=== PATIENT | female | born 1970 | race Caucasian/White ===

== ENCOUNTER → 2019-03-31 10:57 | Outpatient (CLI) | payer MEDICARE, OTHER, SELFPAY ==
--- NOTE | 2019-03-31 11:02 | XR_ITS ---
PROCEDURE: XR ANKLE LT MIN 3V CLINICAL INDICATION: ankle pain COMPARISON: No exams were available for comparison FINDINGS: No fracture, dislocation, lytic change, or blastic change evident. No significant degenerative change the IMPRESSION: Negative left ankle Dictated by: Alvaro Lynch MD 03/31/2019 11:16 Electronically signed by Alvaro Lynch MD in [place] 03/31/2019 11:17
[2019-03-31 19:50] LABS: Amphetamine/Metha Screen,Urine Negative ng/mL (<1000); Barbiturates Screen,Urine Negative ng/mL (<200); Benzodiazepines Screen,Urine Negative ng/mL (<200); Cannabinoid Screen,Urine Negative ng/mL (<50); Cocaine Screen,Urine Negative ng/mL (<300); Methadone Screen,Urine Negative ng/mL (<300); Opiate Screen,Urine Negative ng/mL (<300); Phencyclidine Screen,Urine Negative ng/mL (<25)
== END ==
PROVIDERS: Nurse Practitioner Family; PCP Emergency Medicine; Visit Provider Emergency Medicine
DX: M25.572 Pain in left ankle and joints of left foot (principal); Z79.899 Other long term (current) drug therapy
CPT/HCPCS: 73610; 80305

== ENCOUNTER → 2019-03-31 17:11 | Outpatient (CLI) | payer MEDICARE, OTHER, SELFPAY | PROVIDERS: Visit Provider Nurse Practitioner Family | DX: Z79.899 Other long term (current) drug therapy (principal) | CPT/HCPCS: 80305 ==

== ENCOUNTER → 2019-04-20 09:27 | Outpatient (CLI) | payer MEDICARE, OTHER, SELFPAY ==
--- NOTE | 2019-04-20 09:59 | XR_ITS ---
PROCEDURE: XR FOOT LT MIN 3V CLINICAL INDICATION: L Foot pain COMPARISON: No exams were available for comparison FINDINGS: No fracture or dislocation. No lytic or blastic change. There is normal mineralization. The joint spaces are well-preserved. No significant degenerative/arthritic changes. No erosive changes evident. Other findings:None. IMPRESSION: No acute findings. Dictated by: Alvaro Lynch MD 04/20/2019 16:19 Electronically signed by Alvaro Lynch MD in [place] 04/20/2019 16:19
[2019-04-20 10:26] LABS: Basophils # 0.1 K/mm3 (0-0.2); Basophils % 0.7 % (0.1-2.0); Eosinophils # 0.3 K/mm3 (0.0-0.4); Eosinophils % 2.6 % (0.1-12.0); Hematocrit 44.7 % (37.0-47.0); Lymphocytes # 2.2 K/mm3 (0.7-4.5); Mean Corpuscular HGB Conc 31.3 g/dL (31.8-35.4); Mean Corpuscular Hemoglobin 33.6 pg (27.0-31.2); Mean Corpuscular Volume 107.4 fl (81-99); Mean Platelet Volume 8.1 fl (7.4-10.4); Monocytes # 0.4 K/mm3 (0.1-1.0); Monocytes % 3.9 % (1.7-9.3); Neutrophils # 6.7 K/mm3 (1.8-7.8); Neutrophils % 69.8 % (37.0-80.0); Platelet Count 360 K/mm3 (142-424); Red Blood Count 4.17 M/mm3 (4.20-5.40); Red Cell Distribution Width 12.2 % (11.5-17.5); White Blood Count 9.5 K/mm3 (4.8-10.8)
[2019-04-20 11:26] LABS: Alanine Aminotransferase 25 U/L (12-78); Albumin Level 3.6 gm/dL (3.4-5.0); Alkaline Phosphatase 134 U/L (46-116); Anion Gap 15.3 mEq/L (5-15); Aspartate Amino Transferase 17 U/L (15-37); Bilirubin,Total 0.2 mg/dL (0.2-1.0); Blood Urea Nitrogen 20 mg/dL (7-18); Calcium 8.7 mg/dL (8.5-10.1); Carbon Dioxide 26 mmol/L (21.0-32.0); Chloride 103 mmol/L (98-107); Chol/HDL Ratio 7.4 (1-3.5); Cholesterol 311 mg/dL (140-200); Creatinine,Serum 0.84 mg/dL (0.55-1.02); Estimated Glomerular Filt Rate 73 ml/min (>60); GFR (African American) 88 ML/MIN (>60); Globulin 3.6 gm/dl (1.3-3.2); Glucose 116 mg/dL (74-106); HDL Cholesterol 42 mg/dL (29-89); LDL Cholesterol 249 mg/dL (0-130); Potassium 4.3 mmoL/L (3.5-5.1); Sodium 140 mmol/L (136-145); T4 (Thyroxine) 13.8 ug/dl (4.7-13.3); Thyroid Stimulating Hormone 4.59 uIU/ml (0.358-3.740); Total Protein,Serum 7.2 gm/dL (6.4-8.2); Triglycerides 99 mg/dL (30-200); VLDL Cholesterol 20 mg/dL (0-40)
[2019-04-21 14:13] LABS: Vitamin D 25 Hydroxy 7.9 ng/mL (30.0-100.0)
== END ==
PROVIDERS: PCP Nurse Practitioner Family; Visit Provider Nurse Practitioner Family
DX: M79.672 Pain in left foot (principal); R56.9 Unspecified convulsions; R60.0 Localized edema; E78.5 Hyperlipidemia, unspecified; E55.9 Vitamin D deficiency, unspecified
CPT/HCPCS: 36415; 73630; 80053; 80061; 82652; 84436; 84443; 85025

== ENCOUNTER → 2019-11-17 13:24 | Outpatient (CLI) | payer MEDICARE, OTHER, SELFPAY | PROVIDERS: Visit Provider Nurse Practitioner Family | DX: R10.9 Unspecified abdominal pain (principal) | CPT/HCPCS: 87086; 87088; 87186 ==

== ENCOUNTER → 2020-01-13 14:09 | Outpatient (CLI) | payer MEDICARE, OTHER, SELFPAY ==
--- NOTE | 2020-01-13 14:21 | XR_ITS ---
PROCEDURE: XR TIBIA FIBULA LT 2V CLINICAL INDICATION: s/p fall Posttraumatic pain COMPARISON: No exams were available for comparison FINDINGS: No fracture or dislocation. No lytic or blastic change. There is normal mineralization. The joint spaces are well-preserved. No significant degenerative/arthritic changes. No erosive changes evident. Other findings:None. IMPRESSION: No acute findings. Dictated by: Alvaro Lynch MD 01/13/2020 17:29 Alvaro Lynch MD in [place] 01/13/2020 17:29
== END ==
PROVIDERS: PCP Nurse Practitioner Family; Visit Provider Nurse Practitioner Family
DX: M79.604 Pain in right leg (principal); M79.605 Pain in left leg
CPT/HCPCS: 73590

== ENCOUNTER 2020-02-16 13:40 | Emergency (ER) | payer MEDICARE, OTHER, SELFPAY ==
--- NOTE | 2020-02-16 13:47 | HMH.EDGENADL ---
ED Disposition Clinical Impression: Atypical pneumonia Disposition: Home, Self-Care Condition on Discharge: Good Instructions: Atypical Pneumonia Additional Instructions: Take medications as prescribed. Follow-up with your PCP in the next few days. If you have any new, changing, worsening, or concerning symptoms, come back to the emergency department. Prescriptions: predniSONE [Prednisone 10mg Tab Dose-Pack] 10 mg PO UD DOSE PK 5 Days #1 pack Transmission Status: Pending to [id number] Azithromycin [Zithromax 500mg Tab Tri-[place]] 500 mg PO DAILY #3 tab Transmission Status: [facility] Referrals: Rosemary Gonzalez APRN [Primary Care Provider] - Time of Disposition: 14:03 - Critical Care Critical Care Time: No Attestation: On , the high probability of a clinically significant, sudden or life threatening deterioration of the following system(s) required my full and direct attention, intervention and personal management. The time I documented below is in addition to time spent performing reported procedures but includes the following listed in this critical care notation. Medical Decision Making - Medical Records Medical records reviewed: Yes: I reviewed the patient's medical records. MR Comment: 49-year-old female presents emergency department with productive cough. She arrives the ED hemodynamically stable, with reassuring vital signs, and looks well on exam. She has oxygen saturation in the upper 90s on room air and is not in any respiratory distress, she is not tachypneic. She does not feel short of breath and has no chest pain. Given her overall exam and presentation, and history do not feel that she needs a chest x-ray at this time. I doubt a consolidation pneumonia. Her cough has been productive of yellow-green sputum. Will treat with steroids and azithromycin and have her follow-up with her PCP. She was given strict return precautions and discharge instructions including follow-up for further evaluation and treatment and verbalizes an understanding and agreement to the plan. Safe to discharge. - Jhon Inquiry Pt receiving controlled substance: No General Adult HPI - General Stated complaint: merrill burgos Time Seen by Provider: 02/16/20 13:47 - History of Present Illness HPI narrative: 49-year-old female with a history of seizure disorder and bipolar disorder presents the emergency department with productive cough over the last few days. She states she has been taking NyQuil but it has not helped. She denies any history of lung disease or COPD but she is a smoker. She denies any fever or chills at home. Has been eating and drinking well, and overall feels well other than the cough. She states she went to be evaluated because her boyfriend is having surgery soon and she is afraid she may get him sick. She denies any contacts with COVID. She denies any chest pain or back pain. She denies feeling any shortness of breath. She denies any other symptoms or complaints at this time. - Related Data Previous Rx's Medication Instructions Recorded divalproex 500 mg tablet,delayed 1,000 mg PO BID #360 tab 07/28/19 release ergocalciferol (vitamin D2) 1,250 50,000 unit PO QWEEK #14 each 07/28/19 mcg (50,000 unit) capsule hydroxyzine HCl 25 mg tablet 25 mg PO TID PRN #60 tab 07/28/19 levothyroxine 25 mcg tablet 25 mcg PO DAILY #90 each 07/28/19 gabapentin 800 mg tablet 800 mg PO TID 30 Days #90 tab 01/13/20 Azithromycin [Zithromax 500mg Tab 500 mg PO DAILY #3 tab 02/16/20 Tri-Chadwick] predniSONE [Prednisone 10mg Tab 10 mg PO UD DOSE PK 5 Days #1 pack 02/16/20 Dose-Pack] Allergies Allergy/AdvReac Type Severity Reaction Status Date / Time No Known Allergies Allergy Verified 01/13/20 12:59 [facility] History - Hepatitis A Screen Attestation statement:: This patient has been screened for Hepatitis A risk factors. I have reviewed the patient's past medical history: Guillermo
[2020-02-16 13:53] VITALS: BP 144/79; PULSE 98; RESP 15; TEMP 37.2; O2SAT 98; BMI 40.6
[2020-02-16 14:08] VITALS: BP 144/79; PULSE 86; RESP 16; TEMP 37.2; O2SAT 99
== END 2020-02-16 14:08 | disposition home or self-care (01) ==
PROVIDERS: Emergency Provider Emergency Medicine; PCP Nurse Practitioner Family
DX: J18.9 Pneumonia, unspecified organism (principal); R56.9 Unspecified convulsions; F31.30 Bipolar disorder, current episode depressed, mild or moderate severity, unspecified; G43.709 Chronic migraine without aura, not intractable, without status migrainosus; F41.9 Anxiety disorder, unspecified; F17.210 Nicotine dependence, cigarettes, uncomplicated; Z79.899 Other long term (current) drug therapy
CPT/HCPCS: 99281

== ENCOUNTER → 2020-08-14 10:00 | Outpatient (CLI) | payer MEDICARE, OTHER, SELFPAY ==
--- NOTE | 2020-08-14 10:08 | MR_ITS ---
PROCEDURE: MR LUMBAR SPINE WO CON CLINICAL INDICATION: LOW BACK PAIN COMPARISON: No exams were available for comparison TECHNIQUE: Standard multiplanar multiecho sequences are performed without contrast. 3-D MIP and myelographic images are also rendered and reviewed FINDINGS: There is normal lumbar lordosis. Vertebral body heights are maintained. Schmorl's node is noted L1 vertebral body. There is a focal T1 and T2 hyperintense lesion noted in the L1 vertebral body, demonstrates stir hyperintensity. No other focal bony lesions. No marrow infiltrative process. Minor Modic 1 changes noted at L5-S1. The conus terminates at L1 level. Paravertebral soft tissues demonstrate a focal T2 hyperintense lesions in the kidneys bilaterally, statistically most likely represent cysts.. Otherwise the paravertebral soft tissues are unremarkable. Further details as described below T12-L1: Small disc bulge without significant canal or foraminal narrowing. L1-2: No canal or foraminal stenosis. L2-3: Small broad-based disc bulge, bilateral facet joint and ligamentum flavum hypertrophy with annular tear is noted, causes mild to moderate canal and mild bilateral foraminal narrowing. L3-4: Broad-based disc bulge, bilateral facet joint and ligamentum flavum hypertrophy causes mild to moderate canal narrowing. There is mild to moderate left and mild right foraminal narrowing. L4-5: Disc bulge is noted is noted with bilateral facet joint and ligamentum flavum hypertrophy. There is annular tear noted at this level. There is mild canal, moderate left and mild right foraminal narrowing. L5-S1 there is broad-based disc bulge with disc extrusion, worse in the central location noted causes thecal sac indentation. There is moderate canal narrowing. There is bilateral facet joint hypertrophy. Moderate to severe left and moderate right foraminal narrowing is noted. IMPRESSION: Multilevel degenerative changes of the lumbar spine, worse at L5-S1 as described below. Focal T1 and T2 hyperintense lesion noted in the L1 vertebral body, demonstrates STIR hyperintensity, atypical for hemangioma. Nuclear medicine bone scan should be considered for further evaluation. Dictated by: Екатерина Lozano 08/15/2020 08:31 Екатерина Lozano in [place] 08/15/2020 08:31
== END ==
PROVIDERS: PCP Nurse Practitioner; Visit Provider Orthopaedic Surgery Adult Reconstructive Orthopaedic Surgery
DX: M54.5 Low back pain (principal)
CPT/HCPCS: 72148; 76376

== ENCOUNTER → 2022-11-25 23:26 | Outpatient (CLI) | payer MEDICARE, OTHER, SELFPAY | PROVIDERS: PCP Family Medicine; Visit Provider Family Medicine | DX: R30.0 Dysuria (principal) | CPT/HCPCS: 87086 ==

== ENCOUNTER → 2022-11-27 11:00 | Outpatient (CLI) | payer MEDICARE, OTHER, SELFPAY ==
[2022-11-27 16:24] LABS: Basophils % 0.4 % (0.1-2.0); Eosinophils # 0.3 K/mm3 (0.0-0.4); Eosinophils % 2.7 % (0.1-12.0); Hematocrit 46.6 % (37.0-47.0); Hemoglobin 14.9 g/dL (12.2-16.2); Lymphocytes # 2.5 K/mm3 (0.7-4.5); Mean Corpuscular Volume 103.1 fl (81-99); Mean Platelet Volume 8.5 fl (7.4-10.4); Monocytes # 0.4 K/mm3 (0.1-1.0); Monocytes % 3.4 % (1.7-9.3); Neutrophils # 7.6 K/mm3 (1.8-7.8); Neutrophils % 70.6 % (37.0-80.0); Platelet Count 421 K/mm3 (142-424); Red Blood Count 4.52 M/mm3 (4.20-5.40); Red Cell Distribution Width 12.9 % (11.5-17.5); White Blood Count 10.8 K/mm3 (4.8-10.8)
[2022-11-27 16:49] LABS: Alanine Aminotransferase 21 U/L (12-78); Albumin Level 3.9 g/dl (3.5-5.0); Albumin/Globulin Ratio 1.3 (1.1-1.8); Alkaline Phosphatase 174 U/L (38-126); Anion Gap 14.1 mEq/L (5-15); Aspartate Amino Transferase 21 U/L (14-36); Bilirubin,Total 0.3 mg/dl (0.2-1.3); Blood Urea Nitrogen 10 mg/dl (7-17); Calcium 9.2 mg/dl (8.4-10.2); Carbon Dioxide 26 mmol/L (22.0-30.0); Chloride 106 mmol/L (98-107); Estimated Glomerular Filt Rate 89 ml/min (>60); GFR (African American) 107 ML/MIN (>60); Globulin 2.9 g/dL (1.3-3.2); Glucose 148 mg/dl (74-100); HDL Cholesterol 39 mg/dl (40-60); Potassium 5.1 mmoL/L (3.5-5.1); Sodium 141 mmol/L (136-145); Total Protein,Serum 6.8 g/dl (6.3-8.2); Triglycerides 122 mg/dl (30-150); VLDL Cholesterol 24 mg/dL (0-40)
[2022-11-27 17:00] LABS: Direct LDL Cholesterol 243.56 mg/dL (100-129)
[2022-11-27 17:04] LABS: Chol/HDL Ratio 8.4 (1-3.5); Cholesterol 328 mg/dl (140-200)
[2022-11-27 17:19] LABS: Thyroid Stimulating Hormone 4.66 uIU/mL (0.465-4.68)
[2022-11-28 08:50] LABS: Hemoglobin A1C 8.3 % (4.0-6.0)
== END ==
PROVIDERS: PCP Family Medicine; Visit Provider Family Medicine
DX: Z00.00 Encounter for general adult medical examination without abnormal findings (principal); R53.83 Other fatigue; E66.9 Obesity, unspecified; R73.9 Hyperglycemia, unspecified; Z68.41 Body mass index [BMI] 40.0-44.9, adult
CPT/HCPCS: 80053; 80061; 83036; 84443; 85025

== ENCOUNTER → 2023-02-06 23:22 | Outpatient (CLI) | payer MEDICARE, OTHER, SELFPAY | PROVIDERS: PCP Family Medicine; Visit Provider Family Medicine | DX: R30.0 Dysuria (principal) | CPT/HCPCS: 87086 ==

== ENCOUNTER → 2023-03-24 13:45 | Outpatient (CLI) | payer MEDICARE, OTHER, SELFPAY | PROVIDERS: PCP Nurse Practitioner Family; Visit Provider Nurse Practitioner Family | DX: R30.0 Dysuria (principal); B96.89 Other specified bacterial agents as the cause of diseases classified elsewhere | CPT/HCPCS: 87086 ==

== ENCOUNTER → 2023-04-09 13:59 | Outpatient (POV) | payer MEDICARE, OTHER, SELFPAY ==
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
[2023-04-09 14:52] VITALS: BP 130/82; PULSE 92; RESP 18; O2SAT 96; BMI 39.8
== END | disposition home or self-care (01) ==
PROVIDERS: PCP Family Medicine; Visit Provider Nurse Practitioner Family
DX: M54.50 Low back pain, unspecified; G89.29 Other chronic pain; M48.062 Spinal stenosis, lumbar region with neurogenic claudication; M51.16 Intervertebral disc disorders with radiculopathy, lumbar region
CPT/HCPCS: 99202; G0463

== ENCOUNTER 2023-06-26 17:59 | Outpatient (CLI) | payer MEDICARE, OTHER, SELFPAY ==
[2023-06-26 19:19] LABS: Amphetamine/Metha Screen,Urine Negative ng/ml (<1000)
[2023-06-26 19:26] LABS: Phencyclidine Screen,Urine Negative ng/ml (<25)
[2023-06-26 19:30] LABS: Barbiturates Screen,Urine Negative ng/ml (<200)
[2023-06-27 02:12] LABS: Benzodiazepines Screen,Urine Negative ng/ml (<200); Cannabinoid Screen,Urine Negative ng/ml (<50)
[2023-06-27 02:13] LABS: Cocaine Screen,Urine Negative ng/ml (<300)
[2023-06-27 02:14] LABS: Methadone Screen,Urine Negative ng/ml (<300); Opiate Screen,Urine Negative ng/ml (<300)
== END 2023-06-26 23:59 ==
LOC: LAB.DROPOF 17:59
PROVIDERS: PCP Family Medicine; Visit Provider Family Medicine
DX: R10.30 Lower abdominal pain, unspecified (principal); G89.29 Other chronic pain; Z79.899 Other long term (current) drug therapy
CPT/HCPCS: 80307; 87086

== ENCOUNTER 2023-12-14 12:02 | Outpatient (CLI) | payer MEDICARE, OTHER, SELFPAY | END 2023-12-14 23:59 | disposition home or self-care (01) | LOC: LAB.DROPOF 12-15 12:03 | PROVIDERS: PCP Family Medicine; Visit Provider Family Medicine | DX: R39.9 Unspecified symptoms and signs involving the genitourinary system (principal) | CPT/HCPCS: 87086 ==

== ENCOUNTER 2024-06-29 09:42 | Outpatient (CLI) | payer MEDICARE, OTHER, SELFPAY | END 2024-06-29 23:59 | disposition home or self-care (01) | LOC: LAB.DROPOF 06-30 09:57 | PROVIDERS: PCP Nurse Practitioner Family; Visit Provider Nurse Practitioner Family | DX: R30.0 Dysuria (principal) | CPT/HCPCS: 87086 ==